=== PATIENT | male | born 1995 | race Caucasian/White ===

== ENCOUNTER 2016-06-22 09:21 | Emergency (ER) | payer OTHER ==
--- NOTE | 2016-06-22 09:40 | EDDOCDS ---
Physician Documentation [facility] Name: Raúl Desai Age: 20 yrs Sex: Male : 1995 Arrival Date: 06/22/2016 Time: 09:21 Bed Triage 3 Private MD: Pastor [facility] Disposition: 06/22/16 09:36 Discharged to Home/Self Care. Impression: Counseling related to patient's sexual behavior and orientation, Encounter for screening for infections with a predominantly sexual mode of transmission. - Condition is Stable. - Discharge Instructions: Health Maintenance, Males. - Medication Reconciliation, Local Pharmacy Hours form. - Follow up: Kathleen Escobar [facility]; When: Call to arrange an appointment; Reason: Further diagnostic work-up, Recheck today's complaints, Continuance of care. Follow up: Emergency Department; When: As soon as possible; Reason: Worsening of conditions. - Problem is new. - Symptoms are unchanged. Historical: - Allergies: no known allergies; - Home Meds: 1. none - PMHx: none; - PSHx: none; - Social history: Smoking status: Patient uses tobacco products, light tobacco smoker. No barriers to communication noted, The patient speaks fluent Greek, Speaks appropriately for age. - Family history: Not pertinent. - : The pt / caregiver states he / she is not on anticoagulants. Home medication list is obtained from the patient. - Exposure Risk Screening:: None identified. Vital Signs: 06/22 09:23 BP 148 / 82; Pulse 89; Resp 18; Temp 99.1(O); Pulse Ox 100% on R/A; Weight 77.11 kg / jrd 170 lbs (R); Height 5 ft. 8 in. (172.72 cm) (R); Pain 0/10; 09:23 Body Mass Index 25.85 (77.11 kg, 172.72 cm) jrd Signatures: Marcial Brunson RN RN mlb1 Sid Medeiros PA PA btw The chart was reviewed and I authenticate all verbal orders and agree with the evaluation and treatment provided.Corrections: (The following items were deleted from the chart) 09:35 09:29 HIV Screen, Nursing ordered. yosvany palacios MTDD
--- NOTE | 2016-06-22 09:40 | EDDOCDS ---
Nurse's Notes [facility] Name: Raúl Desai Age: 20 yrs Sex: Male : 1995 Arrival Date: 06/22/2016 Time: 09:21 Bed Triage 3 Private MD: LEO Baumann Diagnosis: Counseling related to patient's sexual behavior and orientation;Encounter for screening for infections with a predominantly sexual mode of transmission Presentation: 06/22 09:25 Presenting complaint: Patient states: Wants STD testing recent accidental unprotected mlb1 intercourse. Adult Sepsis Screening: The patient does not have new or worsening altered mentation. Patient's respiratory rate is less than 22. Systolic blood pressure is greater than 100. Patient has a qSOFA score of 0- Negative Sepsis Screen. Suicide/Homicide risk assessment- the patient denies having any suicidal and/or homicidal ideations and does not present with any other emotional, behavioral or mental health complaints. 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 Transition of care: patient was not received from another setting of care. 09:25 Acuity: GRAHAM Level 4 mlb1 09:25 Method Of Arrival: Walkin/Carried/Asstd mlb1 Triage Assessment: 09:27 General: Appears in no apparent distress, Behavior is appropriate for age, cooperative. mlb1 Pain: Denies pain. Pt requests HIV screening. Order Generated. Historical: - Allergies: no known allergies; - Home Meds: 1. none - PMHx: none; - PSHx: none; - Social history: Smoking status: Patient uses tobacco products, light tobacco smoker. No barriers to communication noted, The patient speaks fluent Tajik, Speaks appropriately for age. - Family history: Not pertinent. - : The pt / caregiver states he / she is not on anticoagulants. Home medication list is obtained from the patient. - Exposure Risk Screening:: None identified. Screenin:37 Screening information is obtained from the patient. Fall risk: No risks identified. mlb1 Assistance ADL's: requires no assistance with activities of daily living. Abuse/DV Screen: The patient / caregiver reports he/she is: not in a situation that causes fear, pain or injury. Nutritional screening: No deficits noted. Advance Directives: Currently, there is no health care proxy. home support is adequate. Assessment: 09:38 General: Appears in no apparent distress, comfortable, Behavior is appropriate for age, mlb1 cooperative. Pain: Denies pain. Neurological: No deficits noted. Respiratory: No deficits noted. Vital Signs: 09:23 BP 148 / 82; Pulse 89; Resp 18; Temp 99.1(O); Pulse Ox 100% on R/A; Weight 77.11 kg jrd (R); Height 5 ft. 8 in. (172.72 cm) (R); Pain 0/10; 09:23 Body Mass Index 25.85 (77.11 kg, 172.72 cm) [facility] Vitals: 09:23 Log In Time: June 22, 2016 at 09:18. d ED Course: 09:22 Patient visited by Hiram Mancini PCA. jrd 09:22 Patient moved to Waiting jrd 09:23 Pastor [facility] is Private Physician. jrd 09:24 Patient visited by Hiram Mancini PCA. jrd 09:25 Patient visited by Marcial Brunson, CARLA. mlb1 09:25 Patient moved to Pre RCE jrd 09:27 Triage Initiated mlb1 09:28 Sid Medeiros PA is PHCP. btw 09:28 Ricco Johnston MD is Attending Physician. btw 09:29 Patient moved to Triage 3 mlb1 09:35 Kathleen Escobar [facility] is Referral Physician. btw 09:37 The patient / caregiver is instructed regarding the plan of care and ED course. mlb1 09:37 No IV's were initiated during this patient's visit. No procedures done that require mlb1 assistance. 09:39 Patient visited by Marcial Brunson, CARLA. mlb1 Order Results: There are currently no results for this order. Outcome: 09:36 Discharge ordered by Provider. btw 09:38 Discharge Assessment: Patient awake, alert and oriented x 3. No cognitive and/or mlb1 functional deficits noted. Patient verbalized understanding of disposition instructions. patient administered narcotics - no. The following High Risk Discharge criteria are identified: None. Discharged to home ambulatory. Condition: good. Discharge instructions given to patient, Instructed on discharge instructions, follow up and referral plans. Demonstrated understanding of instructions, Pt was receptive of discharge instructions/ teaching. No special radiology studies were completed. Property sent home with patient. 09:39 Patient left the ED. mlb1 Signatures: Marcial Brunson, RN RN mlb1 Sid Medeiros PA PA btw Hiram Mancini, S[employer]IOR [employer]S OFFICER S[employer]IOR [employer]S OFFICER jrd MTDD
--- NOTE | 2016-06-24 10:41 | EDDOCDS ---
Physician Documentation [facility] Name: Raúl Desai Age: 20 yrs Sex: Male : 1995 Arrival Date: 06/22/2016 Time: 09:21 Bed Triage 3 Private MD: LEO Baumann Disposition: 06/22/16 09:36 Discharged to Home/Self Care. Impression: Counseling related to patient's sexual behavior and orientation, Encounter for screening for infections with a predominantly sexual mode of transmission. - Condition is Stable. - Discharge Instructions: Health Maintenance, Males. - Medication Reconciliation, Local Pharmacy Hours form. - Follow up: Kathleen Escobar [facility]; When: Call to arrange an appointment; Reason: Further diagnostic work-up, Recheck today's complaints, Continuance of care. Follow up: Emergency Department; When: As soon as possible; Reason: Worsening of conditions. - Problem is new. - Symptoms are unchanged. Historical: - Allergies: no known allergies; - Home Meds: 1. none - PMHx: none; - PSHx: none; - Social history: Smoking status: Patient uses tobacco products, light tobacco smoker. No barriers to communication noted, The patient speaks fluent Malay, Speaks appropriately for age. - Family history: Not pertinent. - : The pt / caregiver states he / she is not on anticoagulants. Home medication list is obtained from the patient. - Exposure Risk Screening:: None identified. Vital Signs: 06/22 09:23 BP 148 / 82; Pulse 89; Resp 18; Temp 99.1(O); Pulse Ox 100% on R/A; Weight 77.11 kg / jrd 170 lbs (R); Height 5 ft. 8 in. (172.72 cm) (R); Pain 0/10; 09:23 Body Mass Index 25.85 (77.11 kg, 172.72 cm) jrd MDM: 09:43 [facility] Payment Agreement was scanned into [employer] and attached to record. hs2 06/23 09:23 T-Sheet-- Draft Copy was scanned into [employer] and attached to record. gb Signatures: Anastasia Hinojosa, Reg Reg gb Marcial Brunson RN RN mlb1 Sid Medeiros, LEONEL PA btw Ariadna Galvin, Reg Reg hs2 The chart was reviewed and I authenticate all verbal orders and agree with the evaluation and treatment provided.Corrections: (The following items were deleted from the chart) 06/22 09:35 09:29 HIV Screen, Nursing ordered. mladdy palacios Attachments: 09:43 [facility] Payment Agreement hs2 06/23 09:23 T-Sheet-- Draft Copy gb Chart Complete MTDD
--- NOTE | 2016-06-24 10:41 | EDDOCDS ---
Physician Documentation [facility] Name: Raúl Desai Age: 20 yrs Sex: Male : 1995 Arrival Date: 06/22/2016 Time: 09:21 Bed Triage 3 Private MD: LEO Baumann Disposition: 06/22/16 09:36 Discharged to Home/Self Care. Impression: Counseling related to patient's sexual behavior and orientation, Encounter for screening for infections with a predominantly sexual mode of transmission. - Condition is Stable. - Discharge Instructions: Health Maintenance, Males. - Medication Reconciliation, Local Pharmacy Hours form. - Follow up: Kathleen Escobar [facility]; When: Call to arrange an appointment; Reason: Further diagnostic work-up, Recheck today's complaints, Continuance of care. Follow up: Emergency Department; When: As soon as possible; Reason: Worsening of conditions. - Problem is new. - Symptoms are unchanged. Historical: - Allergies: no known allergies; - Home Meds: 1. none - PMHx: none; - PSHx: none; - Social history: Smoking status: Patient uses tobacco products, light tobacco smoker. No barriers to communication noted, The patient speaks fluent Hebrew, Speaks appropriately for age. - Family history: Not pertinent. - : The pt / caregiver states he / she is not on anticoagulants. Home medication list is obtained from the patient. - Exposure Risk Screening:: None identified. Vital Signs: 06/22 09:23 BP 148 / 82; Pulse 89; Resp 18; Temp 99.1(O); Pulse Ox 100% on R/A; Weight 77.11 kg / jrd 170 lbs (R); Height 5 ft. 8 in. (172.72 cm) (R); Pain 0/10; 09:23 Body Mass Index 25.85 (77.11 kg, 172.72 cm) jrd MDM: 09:43 [facility] Payment Agreement was scanned into [employer] and attached to record. hs2 06/23 09:23 T-Sheet-- Draft Copy was scanned into [employer] and attached to record. gb Signatures: Anastasia Hinojosa, Reg Reg gb Marcial Brunson RN RN mlb1 Sid Medeiros, LEONEL PA btw Ariadna Galvin, Reg Reg hs2 The chart was reviewed and I authenticate all verbal orders and agree with the evaluation and treatment provided.Corrections: (The following items were deleted from the chart) 06/22 09:35 09:29 HIV Screen, Nursing ordered. mladdy palacios Attachments: 09:43 [facility] Payment Agreement hs2 06/23 09:23 T-Sheet-- Draft Copy gb Chart Complete MTDD
--- NOTE | 2016-06-24 10:41 | EDDOCDS ---
Nurse's Notes [facility] Name: Raúl Desai Age: 20 yrs Sex: Male : 1995 Arrival Date: 06/22/2016 Time: 09:21 Bed Triage 3 Private MD: LEO Baumann Diagnosis: Counseling related to patient's sexual behavior and orientation;Encounter for screening for infections with a predominantly sexual mode of transmission Presentation: 06/22 09:25 Presenting complaint: Patient states: Wants STD testing recent accidental unprotected mlb1 intercourse. Adult Sepsis Screening: The patient does not have new or worsening altered mentation. Patient's respiratory rate is less than 22. Systolic blood pressure is greater than 100. Patient has a qSOFA score of 0- Negative Sepsis Screen. Suicide/Homicide risk assessment- the patient denies having any suicidal and/or homicidal ideations and does not present with any other emotional, behavioral or mental health complaints. 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 Transition of care: patient was not received from another setting of care. 09:25 Acuity: GRAHAM Level 4 mlb1 09:25 Method Of Arrival: Walkin/Carried/Asstd mlb1 Triage Assessment: 09:27 General: Appears in no apparent distress, Behavior is appropriate for age, cooperative. mlb1 Pain: Denies pain. Pt requests HIV screening. Order Generated. Historical: - Allergies: no known allergies; - Home Meds: 1. none - PMHx: none; - PSHx: none; - Social history: Smoking status: Patient uses tobacco products, light tobacco smoker. No barriers to communication noted, The patient speaks fluent Urdu, Speaks appropriately for age. - Family history: Not pertinent. - : The pt / caregiver states he / she is not on anticoagulants. Home medication list is obtained from the patient. - Exposure Risk Screening:: None identified. Screenin:37 Screening information is obtained from the patient. Fall risk: No risks identified. mlb1 Assistance ADL's: requires no assistance with activities of daily living. Abuse/DV Screen: The patient / caregiver reports he/she is: not in a situation that causes fear, pain or injury. Nutritional screening: No deficits noted. Advance Directives: Currently, there is no health care proxy. home support is adequate. Assessment: 09:38 General: Appears in no apparent distress, comfortable, Behavior is appropriate for age, mlb1 cooperative. Pain: Denies pain. Neurological: No deficits noted. Respiratory: No deficits noted. Vital Signs: 09:23 BP 148 / 82; Pulse 89; Resp 18; Temp 99.1(O); Pulse Ox 100% on R/A; Weight 77.11 kg jrd (R); Height 5 ft. 8 in. (172.72 cm) (R); Pain 0/10; 09:23 Body Mass Index 25.85 (77.11 kg, 172.72 cm) [facility] Vitals: 09: Log In Time: June 22, 2016 at 09:18. [facility] ED Course: 09:22 Patient visited by Hiram Mancini PCA. jrd 09:22 Patient moved to Waiting jrd 09:23 Pastor [facility] is Private Physician. jrd 09:24 Patient visited by Hiram Mancini PCA. jrd 09:25 Patient visited by Marcial Brunson, RN. mlb1 09:25 Patient moved to Pre RCE jrd 09:27 Triage Initiated mlb1 09:28 Sid Medeiros PA is PHCP. btw 09:28 Ricco Johnston MD is Attending Physician. btw 09:29 Patient moved to Triage 3 mlb1 09:35 Kathleen Escobar [facility] is Referral Physician. btw 09:37 The patient / caregiver is instructed regarding the plan of care and ED course. mlb1 09:37 No IV's were initiated during this patient's visit. No procedures done that require mlb1 assistance. 09:39 Patient visited by Marcial Brunson, CARLA. mlb1 09:43 [facility] Payment Agreement was scanned into [employer] and attached to record. hs2 12:22 Patient name changed from Raúl\S\D\S\Lloyd\S\ to Raúl\S\Everett\S\Time Study Observer. EDMS 06/23 09:23 T-Sheet-- Draft Copy was scanned into [employer] and attached to record. gb Order Results: There are currently no results for this order. Outcome: 06/22 09:36 Discharge ordered by Provider. btw 09:38 Discharge Assessment: Patient awake, alert and oriented x 3. No cognitive and/or mlb1 functional deficits noted. Patient verbalized understanding of disposition instructions. patient administered narcotics - no. The following High Risk Discharge criteria are identified: None. Discharged to home ambulatory. Condition: good. Discharge instructions given to patient, Instructed on discharge instructions, follow up and referral plans. Demonstrated understanding of instructions, Pt was receptive of discharge instructions/ teaching. No special radiology studies were completed. Property sent home with patient. 09:39 Patient left the ED. mlb1 Signatures: Dispatcher [employer] EDMS Anastasia Hinojosa, Reg Reg gb Marcial Brunson RN RN mlb1 Sid Medeiros PA PA btw Hiram Mancini, JOI JUICE STANDARDIZER jrd Ariadna Galvin, Reg Reg hs2 Chart Complete MTDD
== END 2016-06-22 09:39 | disposition home or self-care (01) ==
LOC: M ED 09:21
DX: Z20.2 Contact with and (suspected) exposure to infections with a predominantly sexual mode of transmission (principal); Z70.1 Counseling related to patient's sexual behavior and orientation; F17.210 Nicotine dependence, cigarettes, uncomplicated